=== PATIENT | female | born 1935 | race Caucasian/White ===

== ENCOUNTER 2024-05-07 09:18 | Emergency (ER) | payer MEDICARE, OTHER, SELFPAY ==
[2024-05-07] VITALS (17 sets, daily range): BP systolic 125–168; BP diastolic 51–85; PULSE 67–84; RESP 16–24; TEMP 36.4–36.9; O2SAT 92–100; BMI 28.1
--- NOTE | 2024-05-07 09:24 | EX.ED.DYSGE1 ---
HPI History of Present Illness Chief Complaint: Abn Labs [facility] Medical History (Updated 05/07/24 @ 09:25 by Jodi Ferreira) Hypertension Atrial fibrillation Diabetes Home Medications ?Medication ?Instructions ?Recorded ?Last Taken ?Type acetaminophen 325 mg tablet 650 mg PO TID PRN pain 05/07/24 Unknown History aspirin 81 mg tablet,delayed 81 mg PO DAILY 05/07/24 Unknown History release cholecalciferol (vitamin D3) 50 50 mcg PO DAILY SUPPLEMENT 05/07/24 Unknown History mcg (2,000 unit) capsule (D3-2000) empagliflozin 10 mg tablet 10 mg PO DAILY DIABETES 05/07/24 Unknown History (Jardiance) furosemide 20 mg tablet 20 mg PO DAILY 05/07/24 Unknown History latanoprost 0.005 % eye drops 1 drp ophthalmic (eye) QHS 05/07/24 Unknown History lisinopril 20 mg tablet 20 mg PO DAILY 05/07/24 Unknown History metoprolol succinate 25 mg 25 mg PO DAILY 05/07/24 Unknown History tablet,extended release 24 hr polysaccharide iron complex 150 mg 150 mg PO TUSA 05/07/24 Unknown History iron capsule timolol 0.5 % eye drops 1 drp LEFT EYE BID GLAUCOMA 05/07/24 Unknown History Allergy/AdvReac Type Severity Reaction Status Date / Time nickel Allergy Itching Verified 05/07/24 09:21 Social History Smoking Status: Never smoker EXAM Physical Exam Const Vital Signs: 05/07/24 09:21 05/07/24 09:24 05/07/24 11:19 Temperature 97.5 F L Temperature Source Oral Pulse Rate 80 68 Respiratory Rate 19 H 16 Respiratory Effort Normal Non-Labored Respiratory Depth Respiratory Pattern Normal Blood Pressure 140/68 H 125/76 H Blood Pressure Mean 92 92 Blood Pressure Source Blood Pressure Position Blood Pressure Location Pulse Ox 98 99 Oxygen Delivery Method Room Air Room Air 05/07/24 11:36 05/07/24 11:41 05/07/24 11:56 Temperature 98.2 F 98.3 F 97.8 F Temperature Source Oral Oral Oral Pulse Rate 76 69 74 Respiratory Rate 17 16 22 H Respiratory Effort Respiratory Depth Respiratory Pattern Blood Pressure 125/60 H 132/52 H 135/58 H Blood Pressure Mean 81 78 83 Blood Pressure Source Monitor Monitor Monitor Blood Pressure Position Semi-Fowlers Semi-Fowlers Semi-Fowlers Blood Pressure Location Right Arm Right Arm Right Arm Pulse Ox 92 100 99 Oxygen Delivery Method Room Air Room Air Room Air 05/07/24 12:56 05/07/24 13:00 05/07/24 13:50 Temperature 97.8 F 97.8 F Temperature Source Oral Oral Pulse Rate 72 74 68 Respiratory Rate 18 16 18 Respiratory Effort Respiratory Depth Respiratory Pattern Blood Pressure 153/62 H 153/62 H 144/51 H Blood Pressure Mean 92 92 82 Blood Pressure Source Monitor Monitor Blood Pressure Position Semi-Fowlers Semi-Fowlers Blood Pressure Location Right Arm Right Arm Pulse Ox 99 100 98 Oxygen Delivery Method Room Air Room Air Room Air 05/07/24 14:00 05/07/24 14:09 05/07/24 14:22 Temperature 97.9 F 98.4 F 98.4 F Temperature Source Oral Oral Oral Pulse Rate 74 67 75 Respiratory Rate 16 21 H 24 H Respiratory Effort Respiratory Depth Respiratory Pattern Blood Pressure 134/73 H 132/73 H 138/61 H Blood Pressure Mean 93 92 86 Blood Pressure Source Monitor Monitor Monitor Blood Pressure Position Semi-Fowlers Semi-Fowlers Semi-Fowlers Blood Pressure Location Right Arm Right Arm Right Arm Pulse Ox 100 95 96 Oxygen Delivery Method Room Air Room Air Room Air 05/07/24 14:24 05/07/24 15:24 05/07/24 15:36 Temperature 98.5 F 97.8 F Temperature Source Oral Oral Pulse Rate 67 72 Respiratory Rate 24 H 19 H Respiratory Effort Normal Non-Labored Respiratory Depth Normal Respiratory Pattern Normal Blood Pressure 129/69 H 127/75 H Blood Pressure Mean 89 92 Blood Pressure Source Monitor Blood Pressure Position Semi-Fowlers Blood Pressure Location Right Arm Pulse Ox 98 99 Oxygen Delivery Method Room Air Room Air Room Air MDM MDM MDM Narrative Medical decision making narrative: HISTORY OF PRESENT ILLNESS: 89-year-old female presents with concern for low hemoglobin. Per report from [place] hemoglobin was 5.2. Notes history of iron deficiency anemia. Per the patient son the patient was admitted in the last year to a [facility] and underwent multiple different test and interventions including seeing a GI doctor without a source being identified. At that time she was on warfarin for A-fib and this was discontinued. She is not currently on blood thinners. She states she has not been having any hemoptysis, hematemesis, melena, hematochezia, any bleeding diathesis. She takes a baby aspirin but denies any other blood thinners. She notes diffuse weakness but denies any shortness of breath chest pain or palpitations. REVIEW OF SYSTEMS: Pertinent positives: Low hemoglobin, weakness Pertinent negatives: Bleeding diathesis PHYSICAL EXAM: Nursing triage notes reviewed, Vital signs reviewed Constitutional: please see mdm HENT: MMM Eyes: Pupils equal round and reactive to light, Extraocular muscles intact Neck: No stridor, no JVD, full neck ROM Lungs: Clear to auscultation, No wheezing or rales. No increased work of breathing, no conversational dyspnea, no accessory muscle use, no nasal flaring. No respiratory distress noted Heart: Regular rate and rhythm, No murmurs, No rubs and No gallops, 2+ distal pulses (radial, femoral, posterior tibial) in all extremities Abdomen: Soft, there is no tenderness, rigidity, rebound or guarding, no obvious peritoneal signs, no palpable pulsatile abdominal masses, no auscultated abdominal bruit : No CVAT Rectal: Performed parachute rigger in room (Rylee PEREZ), there is no obvious hemorrhoid, no anal fissures, stool was dark in appearance sent for occult evaluation Extremities: No edema Neuro: No focal neurological deficits, cranial nerves II through XII intact, 5/5 strength in all extremities. Intact sensation to light touch in all extremities, 2+ reflexes bilateral patella tendons. Normal gait. No ataxia. Skin: No rash or lesions noted MEDICAL DECISION MAKING: Chief Complaint: Low hemoglobin External records reviewed: Labs reviewed: Hemoglobin on 05/07/2024 was 5.2. Prior hemoglobin from December 2023 was 7.6 Clinic sync reviewed Factors affecting care: Atrial fibrillation, iron deficiency, chronic anemia Social determinants of health: Elderly, senior care resident History obtained from others: EMS Consults: Internal medicine MDM Narrative: The patient was initially hemodynamically stable, afebrile and nontoxic-appearing. Exam without focus of bleeding. Labs reviewed from earlier showed significant anemia. I considered the following differential diagnosis: Anemia (blood loss, GI bleed, iron deficiency or other vitamin deficiency), I obtained labs, consented the patient for blood transfusion. ALL IMAGES (IF OBTAINED) HAVE BEEN PERSONALLY REVIEWED AND INTERPRETED BY MYSELF. CBC here shows a hemoglobin of 5.8, platelet count within normal limits, no white blood cell count elevation to suggest systemic inflammation Fecal occult blood sample negative EKG with rate controlled A-fib, frequent PVCs, slightly prolonged QT at 475, no STEMI The synthesis of the patient's history, physical exam, labs suggest likely continued iron deficiency anemia. No sign of GI bleed. The patient is on on blood thinners. She is hemodynamically stable. Discussed risk and benefits of admission versus discharge. Discussed risk of hospitalization including nosocomial infection, falls, sundowning, VTE risk. Discussed risk of discharge. Patient was able to articulate risk and benefits and agreed that hospitalization is likely more risky than discharge at this time given his acute on chronic issue. She preferred to be discharged and follow-up with her GI doctor as an outpatient. She was given 2 unit blood transfusion. She will be discharged stable condition after transfusion. The patient and/or family, caregivers express understanding. The patient and/or family, caregivers agrees with the plan. Shared decision making: I will have a discussion with the patient and or visitors regarding risk/benefits of further testing or admission. They will be made aware of of the risk/benefits inherent in this decision they will be given the opportunity to voice understanding. Total critical care time today provided was at least 0 minutes. This excludes separately billable procedures. Critical care time (if documented) is secondary to the patient having high probability of clinically significant/life threatening deterioration in the patient's condition which required my urgent intervention. Impression: 1. Anemia 2. History of atrial fibrillation 3. History of iron deficiency anemia Dispo: discharge This note was generated with [employer] dictation software. It may contain incorrect words, spelling, and punctuation that were not noted in review of the chart prior to signing. Lab Data Labs: Laboratory Results - last 24 hr 05/07/24 05/07/24 09:22 09:40 WBC 6.7 RBC 2.75 L Hgb 5.8 L* Hct 21.2 L MCV 77.1 L MCH 21.1 L MCHC 27.4 L RDW Std Deviation 62.4 H RDW Coeff of Betina 23.3 H Plt Count 236 MPV 10.3 Differential Comment COMMENT Diff Path Review May foll Blood Type O NEGATIVE Antibody Screen NEGATIVE Crossmatch See Detail Discharge Plan Triage Chief Complaint: Abn Labs ED Provider: Diego Hawley Dx/Rx/DC Orders Prescriptions: No Action Jardiance 10 mg tablet 10 mg PO DAILY latanoprost 0.005 % drops 1 drp ophthalmic (eye) QHS Rx Instructions: LEFT EYE furosemide 20 mg tablet 20 mg PO DAILY polysaccharide iron complex 150 mg iron capsule 150 mg PO TUSA lisinopril 20 mg tablet 20 mg PO DAILY metoprolol succinate 25 mg tablet extended release 24 hr 25 mg PO DAILY acetaminophen 325 mg tablet 650 mg PO TID PRN (Reason: pain) aspirin 81 mg tablet,delayed release (DR/EC) 81 mg PO DAILY timolol 0.5 % drops 1 drp LEFT EYE BID cholecalciferol (vitamin D3) [D3-2000] 50 mcg (2,000 unit) capsule 50 mcg PO DAILY Primary Care Provider: Rupert Beard Referrals: Rupert Beard MD [Primary Care Provider] - Print Language: Micronesian
--- NOTE | 2024-05-07 09:27 | EKG12_ITS ---
Test Reason : ABN LABS Blood Pressure : / mmHG Vent. Rate : 075 BPM Atrial Rate : 051 BPM P-R Int : 000 ms QRS Dur : 106 ms QT Int : 426 ms P-R-T Axes : 000 030 086 degrees QTc Int : 475 ms Atrial fibrillation Incomplete left bundle branch block Nonspecific T wave abnormality Prolonged QT Abnormal ECG Confirmed by AMBERLY FAIRBANKS, HERBERT ([id number]), publication editor MARK WAITE ([id number]) on 05/09/2024 9:30:05 AM Referred By: Confirmed By:HERBERT GAMING MD
[2024-05-07 09:53] LABS: Hematocrit 21.2 % (37-47); Mean Corp Hgb Conc 27.4 g/dL (32-36); Mean Corpuscular Hgb 21.1 pg (27.0-32.0); Mean Corpuscular Volume 77.1 fL (81-99); Mean Platelet Vol. 10.3 fl (6.2-12.0); POSITIVE COUNT YES; POSITIVE MORPHOLOGY YES; Platelet Count 236 K/mm3 (150-450); RBC Distribution Width CV 23.3 % (11.6-14.6); RBC Distribution Width SD 62.4 fl (35.1-43.9); Red Blood Count 2.75 M/mm3 (4.2-5.4); White Blood Count 6.7 K/mm3 (4.4-11.0)
[2024-05-07 09:56] LABS: Hemoglobin 5.8 g/dL (12.0-15.0)
[2024-05-07 09:57] LABS: Scan Indicated on CBC? Y/N YES- FLAGS NOTED
--- NOTE | 2024-05-07 09:59 | NURSING ---
HEMOGLOBIN 5.8
[2024-05-07] MEDS: Ibuprofen 200 MG Tablet 400 MG PO (13:49)
[2024-05-07] MEDS: Acetaminophen 325 MG Tablet PO (13:50)
--- NOTE | 2024-05-07 17:02 | ED.RN ---
Physicians called for johana. Spoke with Sameera. DAMIAN 1747pm.
--- NOTE | 2024-05-07 17:43 | ED.RN ---
REPORT CALLED TO LASHA GREY LPN AT THIS TIME. THERE WERE NO FURTHER QUESTIONS BY THE RECEIVING NURSE AT THIS TIME.
--- NOTE | 2024-05-07 18:24 | ED.RN ---
Updated ETA 204-9
[2024-05-09 09:27] LABS: Pathologist Review Reviewed
== END 2024-05-07 20:01 | disposition home or self-care (01) ==
PROVIDERS: Emergency Provider Emergency Medicine; PCP Internal Medicine; Visit Provider Emergency Medicine
DX: D64.9 Anemia, unspecified (principal); I48.91 Unspecified atrial fibrillation; E11.9 Type 2 diabetes mellitus without complications; I10 Essential (primary) hypertension; E61.1 Iron deficiency; Z79.82 Long term (current) use of aspirin; Z79.84 Long term (current) use of oral hypoglycemic drugs; Z79.899 Other long term (current) drug therapy
CPT/HCPCS: 82274; 85027; 86644; 86850; 86900; 86901; 86920; 93005; 99283; J7040; P9016; A4216

== ENCOUNTER → 2024-05-07 | Outpatient (REF) | payer MEDICARE, OTHER, SELFPAY ==
[2024-05-07 07:17] LABS: Hematocrit 18.9 % (37-47); Mean Corp Hgb Conc 27.5 g/dL (32-36); Mean Corpuscular Hgb 21.1 pg (27.0-32.0); Mean Corpuscular Volume 76.8 fL (81-99); Mean Platelet Vol. 10.8 fl (6.2-12.0); POSITIVE COUNT YES; POSITIVE MORPHOLOGY YES; Platelet Count 183 K/mm3 (150-450); RBC Distribution Width CV 22.9 % (11.6-14.6); RBC Distribution Width SD 62.7 fl (35.1-43.9); Red Blood Count 2.46 M/mm3 (4.2-5.4); White Blood Count 4.8 K/mm3 (4.4-11.0)
[2024-05-07 07:33] LABS: Hemoglobin 5.2 g/dL (12.0-15.0); Scan Indicated on CBC? Y/N YES- FLAGS NOTED
[2024-05-07 08:01] LABS: AST(SGOT) 9 U/L (15-37); Alanine Aminotransfer ALT/SGPT 13 U/L (13-56); Albumin, Serum 2.8 g/dL (3.2-5.0); Alkaline Phosphatase 67 U/L (45-117); Anion Gap 5 (5-15); BUN 25 mg/dL (7-18); BUN/Creat Ratio 35.2 RATIO (10-20); Calcium,Total 8.2 mg/dL (8.5-10.1); Chloride 106 mmol/L (98-107); Cholesterol 85 mg/dL (200); Creatinine, Serum 0.71 mg/dL (0.55-1.02); EST Glomerular Filtration Rate 83 mL/min (>60); Est Glom Filt Rate - Afr Amer 100 mL/min (>60); Globulin 2.8 g/dL (2.2-4.2); Glucose 194 mg/dL (74-106); High Density Lipoprotein 39 mg/dL; Potassium 4.1 mmol/L (3.5-5.1); Protein, Total 5.6 g/dL (6.4-8.2); Sodium Level 138 mmol/L (136-145); Thyroid Stim Hormone (TSH) 1.64 uIU/mL (0.358-3.74); Triglycerides 58 mg/dL; Very Low Density Lipoprotein 12 mg/dL (5-40)
[2024-05-07 09:57] LABS: Hemoglobin A1c 6.3 % (3.8-5.6)
[2024-05-07 16:15] LABS: Pathologist Review Reviewed
== END ==
PROVIDERS: Visit Provider Family Medicine
DX: D64.9 Anemia, unspecified (principal); I11.0 Hypertensive heart disease with heart failure; I50.9 Heart failure, unspecified; E11.9 Type 2 diabetes mellitus without complications; Z79.899 Other long term (current) drug therapy
CPT/HCPCS: 36415; 80053; 80061; 83036; 83880; 84436; 84443; 85027

== ENCOUNTER → 2024-05-12 | Outpatient (REF) | payer MEDICARE, OTHER, SELFPAY ==
[2024-05-12 09:57] LABS: Hematocrit 26.9 % (37-47); Hemoglobin 7.5 g/dL (12.0-15.0); Mean Corp Hgb Conc 27.9 g/dL (32-36); Mean Corpuscular Volume 78.9 fL (81-99); POSITIVE MORPHOLOGY YES; Platelet Count 191 K/mm3 (150-450); RBC Distribution Width CV 22.3 % (11.6-14.6); RBC Distribution Width SD 63.7 fl (35.1-43.9); Red Blood Count 3.41 M/mm3 (4.2-5.4); White Blood Count 6.8 K/mm3 (4.4-11.0)
[2024-05-12 10:10] LABS: Scan Indicated on CBC? Y/N YES- FLAGS NOTED
[2024-05-12 10:29] LABS: Differential Comment SCANNED
== END ==
PROVIDERS: PCP Internal Medicine; Visit Provider Family Medicine
DX: D64.9 Anemia, unspecified (principal)
CPT/HCPCS: 36415; 85027

== ENCOUNTER → 2024-05-13 | Outpatient (REF) | payer MEDICARE, OTHER, SELFPAY ==
[2024-05-13 08:54] LABS: Hematocrit 25.9 % (37-47); Hemoglobin 7.5 g/dL (12.0-15.0)
== END ==
PROVIDERS: PCP Internal Medicine; Visit Provider Family Medicine
DX: D64.9 Anemia, unspecified (principal); I11.0 Hypertensive heart disease with heart failure; I50.30 Unspecified diastolic (congestive) heart failure; I35.0 Nonrheumatic aortic (valve) stenosis
CPT/HCPCS: 36415; 85014; 85018

== ENCOUNTER → 2024-05-15 | Outpatient (REF) | payer MEDICARE, OTHER, SELFPAY ==
[2024-05-15 11:25] LABS: Hematocrit 26.9 % (37-47); Hemoglobin 7.6 g/dL (12.0-15.0)
== END ==
PROVIDERS: PCP Internal Medicine; Visit Provider Family Medicine
DX: D64.9 Anemia, unspecified (principal); I11.0 Hypertensive heart disease with heart failure; I50.30 Unspecified diastolic (congestive) heart failure; I35.0 Nonrheumatic aortic (valve) stenosis
CPT/HCPCS: 36415; 85014; 85018

== ENCOUNTER → 2024-05-16 | Outpatient (REF) | payer MEDICARE, OTHER, SELFPAY ==
[2024-05-16 10:23] LABS: Hematocrit 26.2 % (37-47); Hemoglobin 7.4 g/dL (12.0-15.0)
== END ==
PROVIDERS: PCP Internal Medicine; Referring Provider Family Medicine; Visit Provider Family Medicine
DX: D64.9 Anemia, unspecified (principal); I11.0 Hypertensive heart disease with heart failure; I50.30 Unspecified diastolic (congestive) heart failure; I35.0 Nonrheumatic aortic (valve) stenosis
CPT/HCPCS: 36415; 85014; 85018

== ENCOUNTER 2024-05-19 09:23 | Emergency (ER) | payer MEDICARE, OTHER, SELFPAY ==
[2024-05-19] VITALS (9 sets, daily range): BP systolic 104–140; BP diastolic 53–66; PULSE 56–78; RESP 16–28; TEMP 36.4–36.6; O2SAT 95–100; BMI 29.9
--- NOTE | 2024-05-19 09:47 | EX.ED.DYSGE1 ---
HPI History of Present Illness Chief Complaint: Abn Labs Informant: patient and EMS Narrative Narrative: 89-year-old female residing in assisted living has had a chronic wound on her left lower leg, she states the day before yesterday the dressing was on very tight and someone noticed it and took it off and then it hemorrhaged for a little while until they were eventually able to stop the bleeding. Today they rechecked her blood counts and she was at 6.8 and for this reason she was sent to the ER. She is asymptomatic and states the wound is little sore but she does not have any syncope, chest discomfort, dyspnea, lightheadedness, or syncopal episodes recently. No fevers or chills or recent illness. 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 [facility] Medical History Unspecified osteoarthritis, unspecified site Unspecified diastolic (congestive) heart failure Type 2 diabetes mellitus with mild nonproliferative diabetic retinopathy without macular edema, unspecified eye Primary open-angle glaucoma, left eye, mild stage Nonrheumatic aortic (valve) stenosis Hemiplegia, unspecified affecting left nondominant side Hypertension Atrial fibrillation Diabetes Home Medications ?Medication ?Instructions ?Recorded ?Last Taken ?Type acetaminophen 325 mg tablet 650 mg PO TID PRN pain 05/07/24 Unknown History aspirin 81 mg tablet,delayed 81 mg PO DAILY 05/07/24 Unknown History release cholecalciferol (vitamin D3) 50 50 mcg PO DAILY SUPPLEMENT 05/07/24 Unknown History mcg (2,000 unit) capsule (D3-2000) empagliflozin 10 mg tablet 10 mg PO DAILY DIABETES 05/07/24 Unknown History (Jardiance) furosemide 20 mg tablet 20 mg PO DAILY 05/07/24 Unknown History latanoprost 0.005 % eye drops 1 drp ophthalmic (eye) QHS 05/07/24 Unknown History lisinopril 20 mg tablet 20 mg PO DAILY 05/07/24 Unknown History metoprolol succinate 25 mg 25 mg PO DAILY 05/07/24 Unknown History tablet,extended release 24 hr polysaccharide iron complex 150 mg 150 mg PO TUSA 05/07/24 Unknown History iron capsule timolol 0.5 % eye drops 1 drp LEFT EYE BID GLAUCOMA 05/07/24 Unknown History Allergy/AdvReac Type Severity Reaction Status Date / Time celecoxib (From Celebrex) Allergy Severe PT UNSURE Verified 05/19/24 09:32 OF REACTION meloxicam (From Mobic) Allergy Severe PT UNSURE Verified 05/19/24 09:32 OF REACTION rivaroxaban (From Xarelto) Allergy Severe Bleeding Verified 05/19/24 09:32 glipizide Allergy Intermediate Diarrhea Verified 05/19/24 09:32 metformin Allergy Intermediate Diarrhea Verified 05/19/24 09:32 pioglitazone (From Actos) Allergy Intermediate Diarrhea Verified 05/19/24 09:32 nickel Allergy Itching Verified 05/19/24 09:32 Social History Smoking Status: Never smoker ROS ROS ED Constitutional Constitutional ED: Denies chills or fever(s) Eyes Eyes: Denies change in vision or diplopia ENT ENT ED: Denies rhinorrhea or sore throat Cardiovascular Cardiovascular: Denies chest pain or palpitations Respiratory/Chest Respiratory/Chest: Denies cough or dyspnea Gastrointestinal Gastrointestinal: Reports other Details: Black stools since I am taking iron ; Denies abdominal pain, diarrhea, hematochezia, nausea or vomiting Genitourinary Genitourinary ED: Denies dysuria or hematuria Musculoskeletal Musculoskeletal: Denies back pain or neck pain Integumentary Reports wounds; Denies abscess or rash Neurologic Neurologic: Denies headache(s), paresthesias or weakness Psychiatric Psychiatric: Denies anxiety or suicidal thoughts EXAM Physical Exam Const Vital Signs: 05/19/24 09:24 05/19/24 11:24 05/19/24 11:27 Temperature 97.8 F 97.5 F L Temperature Source Temporal Oral Pulse Rate 78 56 L 66 Pulse Rate [Lying] Pulse Rate [Sitting (for 1 minute prior to obtaining)] Respiratory Rate 16 20 H 28 H Blood Pressure 124/64 H 104/53 L 104/53 L Blood Pressure [Lying] Blood Pressure Mean 84 70 70 Blood Pressure Mean [Lying] Blood Pressure Source Monitor Blood Pressure Position Semi-Fowlers Blood Pressure Location Left Arm Pulse Ox 95 98 100 Oxygen Delivery Method Room Air Room Air Room Air 05/19/24 11:40 05/19/24 11:42 Temperature 97.7 F L Temperature Source Oral Pulse Rate 68 Pulse Rate [Lying] 65 Pulse Rate [Sitting (for 1 minute prior to obtaining)] 67 Respiratory Rate 19 H Blood Pressure 112/66 Blood Pressure [Lying] 112/66 Blood Pressure Mean 81 Blood Pressure Mean [Lying] 81 Blood Pressure Source Monitor Blood Pressure Position Semi-Fowlers Blood Pressure Location Left Arm Pulse Ox 99 Oxygen Delivery Method Room Air Positive well nourished and well developed General Appearance ED: well developed and NAD HEENT Reports moist mucous membranes normocephalic and atraumatic Eyes PERRL and EOMs intact bilaterally Neck full ROM and supple Resp normal respiratory effort and clear to auscultation bilaterally Cardio Rhythm: abnormal rhythm irregularly irregular Heart Sounds: murmur systolic II/ crescendo-decrescendo left sternal border Peripheral Pulses: pulses 2+ throughout GI non-tender and non-distended GI Narrative: Dark nonbloody stool present. Rectal nontender. Auscultation: normoactive bowel sounds Palpation: soft Back/Spine no CVA tenderness General Back: other FROM Extremity normal to inspection General Extremety ED: Negative for edema, pulses abnormal or tenderness General Extremity: Negative for edema or pulses abnormal Neuro oriented x3, CN's II-XII intact bilaterally and no sensory deficits noted Sensorium / Orientation: awake and alert Motor Exam: strength 5/5 throughout Psych mental status grossly normal Skin no rashes or lesions noted Skin Narrative: Broad-based superficial ulcer approximately 8-10 cm in diameter lateral aspect of the left lower leg no signs of infection no tenderness, dressing intact no bleeding or signs of recent bleeding. There is serous seeping, the dressing is soaked with it but no blood. MDM MDM MDM Narrative Medical decision making narrative: Discussed pros and cons of blood transfusion with patient, she states she has had these many times before and consents. I reviewed old labs, her hemoglobin 6.8 drawn this morning. Therefore I ordered her a unit of packed red blood cells to be transfused, and we also sent a smear of stool from rectal exam for Hemoccult. That is negative. Her BUN is a little elevated but this is chronically so looking back at her old labs and not necessarily indicative of an acute upper GI bleed. Her hemoglobin returned at 7.3 this is before we provided/started blood transfusion. I think reasonable for her to get a unit of blood and then be discharged and follow-up. Her orthostatics which were modified because she does not stand without significant assistance, are negative. It is reasonable to presume that she has chronic anemia that may have been made worse by the episode of bleeding she had a couple days ago but since she has no bleeding now it is unknown how much blood she actually lost from that. Lab Data Attestation: I reviewed the patient's lab results. Labs: Laboratory Results - last 24 hr 05/19/24 05/19/24 09:40 09:55 WBC 5.8 RBC 3.32 L Hgb 7.3 L Hct 25.7 L MCV 77.4 L MCH 22.0 L MCHC 28.4 L RDW Std Deviation 59.4 H RDW Coeff of Betina 21.2 H Plt Count 151 MPV 9.6 Immature Gran % (Auto) 0.300 Neut % (Auto) 76.0 H Lymph % (Auto) 14.6 L [place] % (Auto) 6.9 Eos % (Auto) 1.7 Baso % (Auto) 0.5 Absolute Neuts (auto) 4.4 Absolute Lymphs (auto) 0.85 Nucleated RBC % 0 Differential Comment SCANNED Hypochromasia 1+ Anisocytosis 3+ Microcytosis 1+ Macrocytosis 1+ Target Cells 1+ Tear Drop Cells 1+ Ovalocytes 1+ Acanthocytes (Spur) 1+ Schistocytes 1+ Sodium 138 Potassium 4.7 Chloride 104 Carbon Dioxide 28.0 Anion Gap 6 BUN 24 H Creatinine 0.62 Estim Creat Clear Calc 55.00 Est GFR (MDRD) Af Amer 116 Est GFR (MDRD) Non-Af 96 BUN/Creatinine Ratio 38.6 H Glucose 191 H Calcium 8.7 Blood Type O NEGATIVE Antibody Screen NEGATIVE Crossmatch See Detail Discharge Plan Triage Chief Complaint: Abn Labs ED Provider: Miguel Angel Carrasco Dx/Rx/DC Orders Clinical Impression: Acute on chronic anemia, Wound of left lower extremity Instructions: Anemia Prescriptions: No Action Jardiance 10 mg tablet 10 mg PO DAILY latanoprost 0.005 % drops 1 drp ophthalmic (eye) QHS Rx Instructions: LEFT EYE furosemide 20 mg tablet 20 mg PO DAILY polysaccharide iron complex 150 mg iron capsule 150 mg PO TUSA lisinopril 20 mg tablet 20 mg PO DAILY metoprolol succinate 25 mg tablet extended release 24 hr 25 mg PO DAILY acetaminophen 325 mg tablet 650 mg PO TID PRN (Reason: pain) aspirin 81 mg tablet,delayed release (DR/EC) 81 mg PO DAILY timolol 0.5 % drops 1 drp LEFT EYE BID cholecalciferol (vitamin D3) [D3-2000] 50 mcg (2,000 unit) capsule 50 mcg PO DAILY Primary Care Provider: Rupert Lewis Referrals: Rupert Lewis DO [Primary Care Provider] - 3-5 Days Activity Restrictions/Additional Instructions: Repeat hemoglobin prior to getting any blood today is 7.3. 1 unit of blood was given. Print Language: Kazakh Disposition Disposition: Home, Self Care
[2024-05-19 09:56] LABS: Absolute Lymphocyte Count 0.85 X10^3/uL (0.83-4.51); Absolute Neutrophil Count 4.4 X10^3/uL (2.0-7.7); Basophil# 0.03 X10^3/uL; Basophil% 0.5 % (0-1); Eosinophils% 1.7 % (0-5); Hematocrit 25.7 % (37-47); Hemoglobin 7.3 g/dL (12.0-15.0); Lymphocyte # 0.85 X10^3/ul (0.83-4.51); Lymphocyte % 14.6 % (19-41); Mean Corp Hgb Conc 28.4 g/dL (32-36); Mean Corpuscular Volume 77.4 fL (81-99); Mean Platelet Vol. 9.6 fl (6.2-12.0); Monocyte% 6.9 % (0-10); NRBC Flagged by Analyzer 0 % (0-5); Neutrophil # 4.42 X10^3/uL (2.7-7.7); POSITIVE MORPHOLOGY YES; Platelet Count 151 K/mm3 (150-450); RBC Distribution Width CV 21.2 % (11.6-14.6); RBC Distribution Width SD 59.4 fl (35.1-43.9); Red Blood Count 3.32 M/mm3 (4.2-5.4); White Blood Count 5.8 K/mm3 (4.4-11.0)
[2024-05-19 09:57] LABS: Differential Indicated SCAN CRITERIA MET
[2024-05-19 10:12] LABS: Anion Gap 6 (5-15); BUN 24 mg/dL (7-18); BUN/Creat Ratio 38.6 RATIO (10-20); Calcium,Total 8.7 mg/dL (8.5-10.1); Chloride 104 mmol/L (98-107); Creatinine, Serum 0.62 mg/dL (0.55-1.02); EST Glomerular Filtration Rate 96 mL/min (>60); Est Glom Filt Rate - Afr Amer 116 mL/min (>60); Glucose 191 mg/dL (74-106); Potassium 4.7 mmol/L (3.5-5.1); Sodium Level 138 mmol/L (136-145)
[2024-05-19 11:24] LABS: Acanthocytes 1+; Anisocytosis 3+; Differential Comment SCANNED; Hypochromasia 1+; Macrocytosis 1+; Microcytosis 1+; Ovalocyte 1+; Schistocytes 1+; Target Cells 1+; Tear Drop Cell 1+
[2024-05-19] MEDS: Acetaminophen 500 MG Tablet 1000 MG PO (15:34)
== END 2024-05-19 16:00 | disposition home or self-care (01) ==
PROVIDERS: Emergency Provider Emergency Medicine; Visit Provider Emergency Medicine
DX: D64.9 Anemia, unspecified (principal); I11.0 Hypertensive heart disease with heart failure; I50.30 Unspecified diastolic (congestive) heart failure; I48.91 Unspecified atrial fibrillation; E11.9 Type 2 diabetes mellitus without complications; Z79.82 Long term (current) use of aspirin; Z79.84 Long term (current) use of oral hypoglycemic drugs; Z79.899 Other long term (current) drug therapy; S81.802A Unspecified open wound, left lower leg, initial encounter
CPT/HCPCS: 36415; 80048; 82274; 85014; 85018; 85025; 86850; 86900; 86901; 86920; 86922; 99283; J7030; P9016; A4216

== ENCOUNTER → 2024-05-19 | Outpatient (REF) | payer MEDICARE, OTHER, SELFPAY ==
[2024-05-19 08:17] LABS: Hemoglobin 6.8 g/dL (12.0-15.0)
== END ==
PROVIDERS: Visit Provider Family Medicine
DX: D64.9 Anemia, unspecified (principal); Z79.899 Other long term (current) drug therapy
CPT/HCPCS: 36415; 85014; 85018

== ENCOUNTER 2024-05-20 13:47 | Outpatient (RCR) | payer MEDICARE, OTHER, SELFPAY ==
[2024-05-20 14:16] VITALS: BP 158/59; PULSE 72; RESP 18; TEMP 35.8
--- NOTE | 2024-05-20 15:55 | WC ---
Fabiola Serrato LPN and alexx Morley RN tried to assist pt to bed at wound center from her wheelchair . Pt refused to stand . pt states I had a stroke and I cant stand to transfer. Pt sat back down in wheelchair. Alexx Morley Rn called [facility] and talked with Reena Prieto LPN and asked to have pt transfered per cot to wound center or have a jasmyn pad under pt when she comes to wound center for appointments. Reena agreed to request.
== END 2024-06-04 23:59 | disposition home or self-care (01) ==
LOC: WC 13:47
PROVIDERS: Visit Provider Surgery
DX: Z09 Encounter for follow-up examination after completed treatment for conditions other than malignant neoplasm (principal)

== ENCOUNTER → 2024-05-30 | Outpatient (REF) | payer MEDICARE, OTHER, SELFPAY ==
[2024-06-02 08:30] LABS: Mucous, Urine 0 SEEN /hpf (<or=2+)
[2024-06-02 08:59] LABS: Color, Urine Yellow (Yellow); Glucose, Dipstick Normal (Normal); Ketone-Dipstick Negative (Negative); Leukocyte Esterase-Dipstick 25 /ul (Negative); Nitrite-Dipstick Positive (Negative); Occult Blood-Urine Negative /ul (Negative); Protein-Dipstick Negative (Negative); Urine Bilirubin Dipstick Negative (Negative); Urine Clarity Sl. Cloudy (Clear); Urine Urobilinogen Normal (Normal); Urine pH 6.5 (5.0 - 8.0)
[2024-06-02 09:16] LABS: Bacteria 4+ /hpf (None Seen); Red Blood Cells-Urine 0-5 SEEN /hpf (0-5); Squamous Epithelial Cells - UA 0-5 SEEN /hpf (5-10); White Blood Cells 5-10 SEEN /hpf (0-5)
== END ==
PROVIDERS: Visit Provider Family Medicine
DX: R39.9 Unspecified symptoms and signs involving the genitourinary system (principal)
CPT/HCPCS: 81001

== ENCOUNTER → 2024-08-07 | Outpatient (REF) | payer MEDICARE, OTHER, SELFPAY ==
[2024-08-07 08:58] LABS: Hematocrit 34.6 % (37-47); Hemoglobin 10.8 g/dL (12.0-15.0); Mean Corp Hgb Conc 31.2 g/dL (32-36); Mean Corpuscular Hgb 24.3 pg (27.0-32.0); Mean Corpuscular Volume 77.9 fL (81-99); Mean Platelet Vol. 10.1 fl (6.2-12.0); Platelet Count 278 K/mm3 (150-450); RBC Distribution Width CV 18.6 % (11.6-14.6); RBC Distribution Width SD 52.9 fl (35.1-43.9); Red Blood Count 4.44 M/mm3 (4.2-5.4); White Blood Count 23.7 K/mm3 (4.4-11.0)
== END ==
PROVIDERS: Visit Provider Family Medicine Hospice and Palliative Medicine
DX: D64.9 Anemia, unspecified (principal); I10 Essential (primary) hypertension; I48.91 Unspecified atrial fibrillation
CPT/HCPCS: 36415; 85027